=== PATIENT | male | born 1930 | race Caucasian/White ===

== ENCOUNTER 2016-08-16 09:50 | Inpatient (IN) | payer MEDICARE, OTHER ==
[~2016-08-16] VITALS: Ht 177.8 cm; Wt 80.2 kg
[~2016-08-16 09:50] MED LIST: FISH1CAP29 PO; LEVE500T18 PO; MULT1CAP47 PO
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
--- OUTSIDE RECORDS SUMMARY | 2016-08-16 09:55 | XMS REPORT | Referral Summary ---
Author Author [facility], Family Medicine Organization [facility] Address Unknown Phone Unavailable Care Team Providers Care Cardiac Specialist Name Role Phone Alfonso Deal Primary Care Physician [phone] Encounter VC Date(s): 06/17/15 - 06/17/15 [facility], [address] [place] [address] Discharge Diagnosis: Benign essential HTN Discharge Diagnosis: Hypertrophic cardiomyopathy Discharge Disposition: 01-Home or Self Care Attending Physician: Rohith Deal MD Admitting Physician: Rohith Deal MD Vital Signs Most recent to 1 oldest [Reference Range]: Peripheral Pulse 53 bpm Rate [60-100 bpm] *LOW* (06/17/15 9:39 AM) Blood Pressure 160/90 mmHg [90-140/60-90 mmHg] *HI* (06/17/15 9:39 AM) SpO2 97 % (06/17/15 9:39 AM) Problem List Condition Effective Dates Status [...] Ordered lisinopril-hydrochlorothiazide 10 mg-12.5 mg oral tablet See Instructions, 1 TABS ORAL DAILY, # 30 tabs, 1 Refill(s), eRx: [email or web address] [id number], 1 TABS ORAL DAILY Start Date: 06/17/15 Status: Ordered multivitamin 1 tablet, Oral, Daily, [...] Osteotomy, right knee8 1982 Appendectomy 193 Tonsillectomy 193 Vasectomy 1Hospitalization for cellulitis and lymphangitis of the right leg 2Hospitalization for intracerebral hemorrhage and amnesia 3Bilateral 4Tubular adenoma 5Right 6Hospitalization for cellulitis of the left leg 7Left 8Right knee Social History Social History Type Response Smoking Status Never smoker Assessment and Plan Extracted from: Title: Office Visit Note Author: Rohith Deal MD Date: 06/17/15 Assessment/Plan Benign essential HTN Ordered: Basic Metabolic Panel Hypertrophic cardiomyopathy Orders: lisinopril-hydrochlorothiazide, See Instructions, 1 TABS ORAL DAILY, # 30 tabs, 1 Refill(s), eRx: [email or web address] [id number], 1 TABS ORAL DAILY New diagnosis of hypertension. We discussed expectations and nonpharmacologic treatment. We discussed potential adverse effects of lisinopril and HCTZ and will use low-dose combination medicine. Check baseline BMP. Monitor blood pressures at home 2-3 times per week. Follow-up in one month to review blood pressures and anticipate repeat BMP at that time.
--- OUTSIDE RECORDS SUMMARY | 2016-08-16 09:55 | XMS REPORT | Referral Summary ---
Author Author [facility], Cardiology Organization [facility] Address Unknown Phone Unavailable Care Team Providers Care Train Control Technician Name Role Phone Alfonso Deal Primary Care Physician [phone] Encounter VC Date(s): 02/29/16 - 02/29/16 [facility], Cardiology [address] [place] [address] [place] [id number] Discharge Diagnosis: Hypertrophic cardiomyopathy Discharge Disposition: 01-Home or Self Care Attending Physician: Live Maldonado MD Admitting Physician: Live Maldonado MD Referring Physician: Rohith Deal MD Vital Signs Most recent to 1 oldest [Reference Range]: Peripheral Pulse 60 bpm Rate [60-100 bpm] (02/29/16 3:12 PM) Blood Pressure 120/64 mmHg [90-140/60-90 mmHg] (02/29/16 3:12 PM) Problem List Condition Effective Dates Status [...] BID, # 180 tabs, 4 Refill(s), Pharmacy: [facility], 1 tabs Oral BID [...] Colonoscopy4 2008 Knee replacement, right5 2006 Cellulitis6 2003 Knee replacement, left7 2000 Osteotomy, right knee8 1982 Appendectomy 1938 Tonsillectomy 193 Vasectomy 1Hospitalization for cellulitis and lymphangitis of the right leg 2Hospitalization for intracerebral hemorrhage and amnesia 3Bilateral 4Tubular adenoma 5Right 6Hospitalization for cellulitis of the left leg 7Left 8Right knee Social History Social History Type Response Smoking Status Never smoker Assessment and Plan Extracted from: Title: Office Visit Note Author: Live Maldonado MD Date: 02/29/16 Assessment/Plan 1.Hypertrophic cardiomyopathy Discussion: We elected not to make any changes in his medication program he is very comfortable with his current status. He is to see us in 6-12 months or any time as necessary.
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
--- OUTSIDE RECORDS SUMMARY | 2016-08-16 09:55 | XMS REPORT | Referral Summary ---
Author Author [facility] Family Medicine Organization [facility] Address Unknown Phone Unavailable Care Team Providers Care Cuffer Name Role Phone Alfonso Deal Primary Care Physician [phone] Encounter Date(s): 10/31/15 - 10/31/15 [facility] [address] [place] [address] Discharge Diagnosis: Hyperten heart dz w/o heart fail Discharge Diagnosis: Encounter for medication monitoring Discharge Diagnosis: Hypertrophic cardiomyopathy Discharge Diagnosis: Convulsions Discharge Diagnosis: Acute ill-defined cerebrovascular disease Discharge Disposition: 01-Home or Self Care Attending Physician: Rohith Deal MD Admitting Physician: Rohith Deal MD Vital Signs Most recent to 1 oldest [Reference Range]: Peripheral Pulse 81 bpm Rate [60-100 bpm] (10/31/15 10:08 AM) Blood Pressure 130/78 mmHg [90-140/60-90 mmHg] (10/31/15 10:08 AM) SpO2 97 % (10/31/15 10:08 AM) Problem List Condition Effective Dates Status [...] Daily, # 90 tabs, 3 Refill(s), Pharmacy: [facility] Start Date: 07/18/15 Status: Ordered multivitamin 1 tablet, Oral, Daily, 0 Refill(s) Start Date: 04/13/15 Status: Ordered Results Chemistry Most recent to 1 oldest [Reference Range]: Sodium Lvl [135-144 135 mEq/L mEq/L] (10/31/15 11:14 AM) Potassium Lvl 4.3 mEq/L [3.5-5.2 mEq/L] (10/31/15 11:14 AM) Chloride [99-111 100 mEq/L mEq/L] (10/31/15 11:14 AM) CO2 [23-31 mEq/L] 27 mEq/L (10/31/15 11:14 AM) AGAP [3-20] 8 (10/31/15 11:14 AM) BUN [8-26 mg/dL] 14 mg/dL (10/31/15 11:14 AM) Glucose Lvl [70-99 103 mg/dL mg/dL] *HI* (10/31/15 11:14 AM) Creatinine Lvl 0.89 mg/dL [0.72-1.25 mg/dL] (10/31/15 11:14 AM) eGFR [>60 mL/min] >60 mL/min 1 (10/31/15 11:14 AM) Calcium Lvl 9.7 mg/dL [8.9-10.5 mg/dL] (10/31/15 11:14 AM) 1Result Comment: Multiply eGFR results by 1.21 for race. Immunizations Vaccine Date Refusal Reason hepatitis A adult vaccine 03/26/95 influenza virus vaccine, live 01/25/05 influenza virus vaccine, live 01/22/94 pneumococcal 23-polyvalent vaccine 08/11/98 poliovirus vaccine, inactivated 02/19/95 tetanus-diphth toxoids (Td) adult/adol 01/07/06 tetanus-diphth toxoids (Td) adult/adol 03/26/95 zoster vaccine live 03/12/07 Procedures Procedure Date Related Diagnosis Body Site Cellulitis1 2011 Intracerebral hemorrhage2 2010 Cataract extraction, bilateral3 2008 Colonoscopy4 2008 Knee replacement, right5 2006 Cellulitis6 [...] smoker Assessment and Plan Extracted from: Title: CDM-OV * Author: Rohith Deal MD Date: 10/31/15 Impression and Plan Diagnosis Hypertrophic cardiomyopathy (IQZ96-FT I42.2, Discharge, Medical). Hyperten heart dz w/o heart fail (GMO86-BV I51.9, Discharge, Medical). Acute ill-defined cerebrovascular disease (PQH27-YT I67.89, Discharge, Medical). Convulsions (PXC70-CC R56.9, Discharge, Medical). Encounter for medication monitoring (HKN62-EC Z51.81, Discharge, Medical). Orders Orders (Selected) Outpatient Orders Future (On Hold) BMP: .
--- OUTSIDE RECORDS SUMMARY | 2016-08-16 09:55 | XMS REPORT | Referral Summary ---
Author Author [facility] Family Medicine Organization [facility] Address Unknown Phone Unavailable Care Team Providers Care Human Resource Intern Name Role Phone Alfonso Deal Primary Care Physician [phone] Encounter VC Date(s): 05/09/15 - 05/09/15 [facility] [address] [place] [id number] Discharge Diagnosis: Hypertrophic cardiomyopathy Discharge Diagnosis: Hypertrophy (benign) of prostate Discharge Diagnosis: Hyperlipidemia Discharge Diagnosis: OA (osteoarthritis) Discharge Diagnosis: Elevated BP Discharge Diagnosis: Acute ill-defined cerebrovascular disease Discharge Disposition: 01-Home or Self Care Attending Physician: Rohith Deal MD Admitting Physician: Rohith Deal MD Vital Signs Most recent to 1 oldest [Reference Range]: Temperature Tympanic 35.6 degC [36.6-38.1 degC] *LOW* (05/09/15 10:10 AM) Peripheral Pulse 68 bpm Rate [60-100 bpm] (05/09/15 10:10 AM) Blood Pressure 161/99 mmHg [90-140/60-90 mmHg] *HI* (05/09/15 10:10 AM) Problem List Condition Effective Dates Status [...] smoker Assessment and Plan Extracted from: Title: Get acquainted Author: Rohith Deal MD Date: 05/09/15 Assessment/Plan Acute ill-defined cerebrovascular disease Hyperlipidemia Hypertrophic cardiomyopathy Hypertrophy (benign) of prostate OA (osteoarthritis) Overall he seems to be stable and we will continue present care. Today's blood pressure was elevated. I asked him to monitor blood pressures 2 -3 times per week and give me an update after one month. Goal is less than 140 /90. He has neurology follow-up tomorrow with Dr. Nj and I listed that he have Dr. Nj send me a copy of that visit note. He also continues to follow with Dr. Maldonado regarding cardiac issues. If all goes well, follow-up with me in 6 months or sooner if needed. We will send a copy of this visit note to Dr. Nj.
--- OUTSIDE RECORDS SUMMARY | 2016-08-16 09:55 | XMS REPORT | Referral Summary ---
Author Author [facility] Cardiology Organization [facility] Address Unknown Phone Unavailable Care Team Providers Care Cap Lining Machine Operator Name Role Phone Alfonso Deal Primary Care Physician [phone] Encounter VC Date(s): 01/18/16 - 01/18/16 [facility], Cardiology [address] [place] [address] [place] [id number] Discharge Diagnosis: Essential hypertension Discharge Diagnosis: Stable angina Discharge Diagnosis: Hypertrophic cardiomyopathy Discharge Disposition: 01-Home or Self Care Attending Physician: Live Maldonado MD Admitting Physician: Live Maldonado MD Referring Physician: Rohith Deal MD Vital Signs Most recent to 1 oldest [Reference Range]: Peripheral Pulse 60 bpm Rate [60-100 bpm] (01/18/16 11:14 AM) Blood Pressure 106/60 mmHg [90-140/60-90 mmHg] (01/18/16 11:14 AM) Problem List Condition Effective Dates Status [...] BID, # 180 tabs, 4 Refill(s), Pharmacy: [facility], 1 tabs Oral BID [...] Visit Note Author: Live Maldonado MD Date: 01/18/16 Assessment/Plan 1.Hypertrophic cardiomyopathy 2.Essential hypertension 3.Stable angina It's possible that he has a component of hypotensionperhaps related to abruptly standing that might be aggravating his hypertrophic cardiomyopathy. After a lot of discussion, we stopped his lisinopril hydrochlorothiazide and started him instead on carvedilol, 3.15 mg twice daily. He has had a relatively slow heart rate in the past so we will need to be cautious. We suggested a follow-up visit in order to ascertain his stability.
--- OUTSIDE RECORDS SUMMARY | 2016-08-16 09:55 | XMS REPORT | Referral Summary ---
Author Author [facility] Medicine Organization [facility] Address Unknown Phone Unavailable Care Team Providers Care Power Grader Operator Name Role Phone Alfonso Deal Primary Care Physician [phone] Encounter VC Date(s): 07/18/15 - 07/18/15 [facility], Family [address] [place] [address] Discharge Disposition: 01-Home or Self Care Attending Physician: Rohith Deal MD Admitting Physician: Rohith Deal MD Vital Signs Most recent to 1 oldest [Reference Range]: Peripheral Pulse 83 bpm Rate [60-100 bpm] (07/18/15 8:40 AM) Blood Pressure 130/80 mmHg [90-140/60-90 mmHg] (07/18/15 8:40 AM) SpO2 96 % (07/18/15 8:40 AM) Problem List Condition Effective Dates Status [...] Daily, # 90 tabs, 3 Refill(s), Pharmacy: [facility] Start Date: 07/18/15 Status: Ordered multivitamin 1 tablet, Oral, Daily, 0 Refill(s) Start Date: 04/13/15 Status: Ordered Results Chemistry Most recent to 1 oldest [Reference Range]: Sodium Lvl [135-144 138 mEq/L mEq/L] (07/18/15 9:42 AM) Potassium Lvl 4.2 mEq/L [3.5-5.2 mEq/L] (07/18/15 9:42 AM) Chloride [99-111 103 mEq/L mEq/L] (07/18/15 9:42 AM) CO2 [23-31 mEq/L] 29 mEq/L (07/18/15 9:42 AM) AGAP [3-20] 6 (07/18/15 9:42 AM) BUN [8-26 mg/dL] 19 mg/dL (07/18/15 9:42 AM) Glucose Lvl [70-99 96 mg/dL mg/dL] (07/18/15 9:42 AM) Creatinine Lvl 0.97 mg/dL [0.72-1.25 mg/dL] (07/18/15 9:42 AM) eGFR [>60 mL/min] >60 mL/min 1 (07/18/15 9:42 AM) Calcium Lvl 9.7 mg/dL [8.9-10.5 mg/dL] (07/18/15 9:42 AM) 1Result Comment: Multiply eGFR results by 1.21 for race. Immunizations Vaccine Date Refusal Reason hepatitis A adult vaccine 03/26/95 influenza virus vaccine, live 01/25/05 influenza virus vaccine, live 01/22/94 pneumococcal 23-polyvalent vaccine 08/11/98 poliovirus vaccine, inactivated 02/19/95 tetanus-diphth toxoids (Td) adult/adol 01/07/06 tetanus-diphth toxoids (Td) adult/adol 03/26/95 zoster vaccine live 03/12/07 Procedures Procedure Date Related Diagnosis Body Site Cellulitis1 2012 Intracerebral hemorrhage2 2010 Cataract extraction, bilateral3 2007 Colonoscopy4 2007 Knee [...] Visit Note Author: Rohith Deal MD Date: 07/18/15 Assessment/Plan Benign essential HTN Orders: lisinopril-hydrochlorothiazide, 1 tabs, Oral, Daily, # 90 tabs, 3 Refill(s), Pharmacy: [facility] We will check BMP as med monitoring. Otherwise continue current medications and follow-up in 6 months or sooner if needed.
--- OUTSIDE RECORDS SUMMARY | 2016-08-16 09:55 | XMS REPORT | Referral Summary ---
Author Organization Unknown Address Unknown Phone Unavailable Care Team Providers Care Records Section Supervisor Name Role Phone BellFer Primary Care Physician [phone] Encounter [facility] [id number] Date(s): 05/28/14 - 05/28/14 [facility], [place], Cardiology [address] [place], [place] [address] Discharge Disposition: Home or Self Care Attending Physician: Tadeo Narayan MD Admitting Physician: Tadeo Narayan MD Vital Signs No data available for this section Problem List Condition Effective Dates Status Health [...]
--- OUTSIDE RECORDS SUMMARY | 2016-08-16 09:56 | XMS REPORT | Referral Summary ---
Author Author [facility] Organization [facility] Address Unknown Phone Unavailable Care Team Providers Care Monitoring Analyst Name Role Phone Fer Bell Primary Care Physician [phone] Encounter VC Date(s): 04/13/15 - 04/13/15 [facility] [address] [place] [address] ROMEL Bustos [id number] Discharge Diagnosis: Abnormal EKG Discharge Diagnosis: Hypertrophic cardiomyopathy Discharge Disposition: 01-Home or Self Care Attending Physician: Live Maldonado MD Admitting Physician: Live Maldonado MD Referring Physician: Cheko Bell MD Vital Signs Most recent to 1 oldest [Reference Range]: Peripheral Pulse 64 bpm Rate [60-100 bpm] (04/13/15 2:32 PM) Blood Pressure 154/88 mmHg [90-140/60-90 mmHg] *HI* (04/13/15 2:32 PM) Problem List Condition Effective Dates Status [...] left7 2000 Osteotomy, right knee8 1982 Appendectomy 1937 Tonsillectomy 1935 Vasectomy 1Hospitalization for cellulitis and lymphangitis of the right leg 2Hospitalization for intracerebral hemorrhage and amnesia 3Bilateral 4Tubular adenoma 5Right 6Hospitalization for cellulitis of the left leg 7Left 8Right knee Social History Social History Type Response Smoking Status Never smoker Assessment and Plan Extracted from: Title: Office Visit Note Author: Live Maldonado MD Date: 04/13/15 Assessment/Plan 1.Hypertrophic cardiomyopathy Ordered: Office Visit Level 4 Est 57151 2.Abnormal EKG Discussion:Clearly he seems to be relatively free of symptomsand he clearly does have hypertrophic cardiomyopathy with mild obstruction. We had a long discussion regarding the abnormality. We advised him to avoid extremes of activity and to avoidcompetitive sports etc. We advised him of cardinal symptoms. We advised him to contact us if he has any difficulty. I advised him that it will be important for his children and probably his grandchildren to have an echocardiogram to be sure thatthey do not have the pathology. I advised a follow-up visit in 4-6 months but we can see him any time if he has difficulty. He Time of visit today about 25 minutes. Ordered: Office Visit Level 4 Est 25719
--- OUTSIDE RECORDS SUMMARY | 2016-08-16 09:56 | XMS REPORT | Continuity of Care Document ---
Author Author [facility] Organization [facility] Address Unknown Phone Unavailable Allergies Active Description Code Type Severity Reaction Onset Reported/Identified Relationship to Patient Clinical Status Yes fentaNYL NKMA N/A N/A 08/12/2013 Yes penicillin NKMA N/A N/A 08/12/2013 Yes Versed NKMA N/A N/A 03/03/2014 Medications Problems Procedures Results Encounters ACCT No. Visit Date/Time Discharge Status Pt. Type Provider Facility Loc./Unit Complaint [id number] 05/07/2016 10:26:00 2016 23:59:00 DIS Outpatient Rohith Deal V [facility] 6 month CRMMP [id number] 02/29/2016 15:04:00 2015 23:59:00 DIS Outpatient Live Maldonado [facility] Card TCPA 1 mos gail [id number] 01/18/2016 10:46:00 2015 23:59:00 DIS Outpatient Live Maldonado [facility] Card 6 MO RCK [id number] 10/31/2015 10:04:00 2015 23:59:00 DIS Outpatient Rohith Deal V [facility] New FM 6MTH FU FROM 1.25.16 [id number] 08/23/2015 15:04:00 2015 23:59:00 DIS Outpatient Rohith Deal V [facility] FM right ear plugged [id number] 07/18/2015 08:37:00 2015 23:59:00 DIS Outpatient Rohith Deal V [facility] FM 1 month HTN [id number] 06/17/2015 09:31:00 2015 23:59:00 DIS Outpatient Rohith Deal V [facility] FM blood pressure [id number] 04/13/2015 16:26:00 2014 23:59:00 DIS Outpatient Live Maldonado [facility] Mur Card EKG I42.2 PATITO [id number] 04/13/2015 14:05:00 2014 23:59:00 DIS Outpatient Live Maldonado [facility] New Card 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 [id number] 05/09/2015 10:04:00 ACT Outpatient Rohith Deal V [facility] New FM NPT EST CHRIS
--- OUTSIDE RECORDS SUMMARY | 2016-08-16 09:56 | XMS REPORT | Referral Summary ---
Author Organization Unknown Address Unknown Phone Unavailable Care Team Providers Care Cnc Lathe Machinist Name Role Phone Fer Bell Primary Care Physician [phone] Encounter VC Date(s): 06/23/14 - 06/23/14 [facility] [address] [place] [address] Rosas ROMEL [id number] Discharge Diagnosis: Dyslipidemia Discharge Diagnosis: OTHER AND UNSPECIFIED HYPERLIPIDEMIA Discharge Diagnosis: Shortness of breath Discharge Diagnosis: Hypertrophic cardiomyopathy Discharge Diagnosis: Chest pain Discharge Diagnosis: History of seizure Discharge Diagnosis: History of syncope Discharge Diagnosis: Abnormal EKG Discharge Disposition: Home or Self Care Attending Physician: Tadeo Narayan MD Admitting Physician: Tadeo Narayan MD Referring Physician: Cheko Bell MD Vital Signs Most recent to 1 oldest [Reference Range]: Peripheral Pulse 56 bpm Rate [60-100 bpm] *LOW* (06/23/14 10:41 AM) Blood Pressure 126/88 mmHg [90-140/60-90 mmHg] (06/23/14 10:41 AM) Problem List Condition Effective Dates Status [...] 2011 Intracerebral hemorrhage2 2010 Cataract extraction, bilateral3 2007 Colonoscopy4 2008 Knee [...] smoker Assessment and Plan Extracted from: Title: Ambulatory Patient Education Author: Tram Witt NP Date: Family Medicine Cardiac Arrhythmia Your heart is a muscle that works to pump blood through your body by regular contractions. The beating of your heart is controlled by a system of special pacemaker cells. These cells control the electrical activity of the heart. When the system controlling this regular beating is disturbed, a heart rhythm abnormality (arrhythmia ) results. WHEN YOUR HEART SKIPS A BEAT One of the most common and least serious heart arrhythmias is called an ectopic or premature atrial heartbeat (PAC ). This may be noticed as a small change in your regular pulse. A PAC originates from the top part (atrium ) of the heart. Within the right atrium, the SA node is the area that normally controls the regularity of the heart. PACs occur in heart tissue outside of the SA node region. You may feel this as a skipped beat or heart flutter, especially if several occur in succession or occur frequently. Another arrhythmia is ventricular premature complex (VCP or PVC ). These extra beats start out in the bottom, more muscular chambers of the heart. In most cases a PVC is harmless. If there are underlying causes that are making the heart irritable such as an overactive thyroid or a prior heart attack PVCs may be of more concern. In a few cases, medications to control the heart rhythm may be prescribed. Things to try at home: Cut down or avoid alcohol, tobacco and caffeine. Get enough sleep. Reduce stress. Exercise more. WHEN THE HEART BEATS TOO FAST Atrial tachycardia is a fast heart rate, which starts out in the atrium. It may last from minutes to much longer. Your heart may beat 140 to 240 times per minute instead of the normal 60 to 100. Symptoms include a worried feeling (anxiety ) and a sense that your heart is beating fast and hard. You may be able to stop the fast rate by holding your breath or bearing down as if you were going to have a bowel movement. This type of fast rate is usually not dangerous. Atrial fibrillation and atrial flutter are other fast rhythms that start in the atria. Both conditions keep the atria from filling with enough blood so the heart does not work well. Symptoms include feeling light-headed or faint. These fast rates may be the result of heart damage or disease. Too much thyroid hormone may play a role. There may be no clear cause or it may be from heart disease or damage. Medication or a special electrical treatment (cardioversion ) may be needed to get the heart beating normally. Ventricular tachycardia is a fast heart rate that starts in the lower muscular chambers (ventricles ) This is a serious disorder that requires treatment as soon as possible. You need someone else to get and use a small defibrillator. Symptoms include collapse, chest pain, or being short of breath. Treatment may include medication, procedures to improve blood flow to the heart, or an implantable cardiac defibrillator (ICD ). DIAGNOSIS A cardiogram (EKG or ECG ) will be done to see the arrhythmia, as well as lab tests to check the underlying cause. If the extra beats or fast rate come and go, you may wear a Holter monitor that records your heart rate for a longer period of time. SEEK MEDICAL CARE IF: You have irregular or fast heartbeats (palpitations ). You experience skipped beats. You develop lightheadedness. You have chest discomfort. You have shortness of breath. You have more frequent episodes, if you are already being treated. SEEK IMMEDIATE MEDICAL CARE IF: You have severe chest pain, especially if the pain is crushing or pressure- like and spreads to the arms, back, neck, or jaw, or if you have sweating, feeling sick to your stomach (nausea ), or shortness of breath. THIS IS AN EMERGENCY. Do not wait to see if the pain will go away. Get medical help at once. Call 911 or 0 (light oil operator). DO NOT drive yourself to the hospital. You feel dizzy or faint. You have episodes of previously documented atrial tachycardia that do not resolve with the techniques your caregiver has taught you. Irregular or rapid heartbeats begin to occur more often than in the past, especially if they are associated with more pronounced symptoms or of longer duration. Document Released: 04/01/2006 Document Revised: 06/23/2012 Document Reviewed: [facility] Patient Information 2014 [employer] [facility]. No follow up information was provided. Referrals to Other Providers Referred by: rTam Witt NP
--- OUTSIDE RECORDS SUMMARY | 2016-08-16 09:56 | XMS REPORT | Referral Summary ---
Author Organization Unknown Address Unknown Phone Unavailable Care Team Providers Care Toy Electric Train Repairer Name Role Phone Fer Bell Primary Care Physician [phone] Encounter VC Date(s): 05/12/14 - 05/12/14 [facility] [address] [place] [address] Dr Rosas ROMEL [id number] Discharge Diagnosis: Chest pain Discharge Diagnosis: Shortness of breath Discharge Diagnosis: Hypertrophic cardiomyopathy Discharge Disposition: Home or Self Care Attending Physician: Tadeo Narayan MD Admitting Physician: Tadeo Narayan MD Referring Physician: Cheko Bell MD Vital Signs Most recent to 1 oldest [Reference Range]: Peripheral Pulse 51 bpm Rate [60-100 bpm] *LOW* (05/12/14 9:56 AM) Blood Pressure 192/90 mmHg [90-140/60-90 mmHg] *HI* (05/12/14 9:56 AM) Problem List Condition Effective Dates Status [...] Extracted from: Title: Ambulatory Patient Education Author: Tadeo Narayan MD Date: 05/12/14 Family Medicine Hypertrophic Cardiomyopathy The heart has four chambers to pump blood throughout the body. In hypertrophic cardiomyopathy (HC ), the heart muscle becomes enlarged and thickened. The septum is the muscular part of the heart which separates the chambers. When the septum enlarges it takes up part of the heart chamber. This causes a decrease in blood flow. A bigger septum affects the large left muscular chamber of the heart (left ventricle ) and obstructs the blood flow. This may be called obstructive cardiomyopathy (HOCM ). The degree of obstruction may vary and increase during exercise. Young athletes with a family history of heart problems should be screened for this problem. This disease will get worse without treatment. As the heart work increases, so do the size of the muscles. Get medical treatment as soon as possible. This disease can result in sudden , especially after exercise. Diagnosing the problem and treating it is important. SYMPTOMS Shortness of breath. Chest pain. Irregular or fast heart beats. Fainting (especially after exertion). DIAGNOSIS Your caregiver will be able to determine what is wrong by taking a history to see what is bothering you and by doing a physical exam. Other tests may include : An EKG which is a recording of the electrical activity of the heart. With HOCM this may show an enlargement of the left ventricle (left ventricular hypertrophy). An echocardiogram may be done and is the test of choice for screening young athletes. It will usually show the enlargement of the left ventricle and slow filling of the chamber. A doppler test shows irregular flow and a pressure gradient change of both sides of the aortic valve. It also typically shows mitral regurgitation. This means that blood leaks backward through the mitral valve. This makes the heart work harder. TREATMENT Your caregiver may prescribe medications to help this. Sometimes part of the heart septum may be removed with surgery or an alcohol ablation. In severe cases , pacemakers in both sides of the heart may be helpful in reducing the workload on the heart. PROGNOSIS Atrial fibrillation may occur. This is a condition where the top chambers of the heart have stopped beating in a normal regular fashion. Sudden is another complication of untreated HC. SEEK IMMEDIATE MEDICAL CARE IF: You develop chest pain, sweating, or shortness of breath, especially during or after sports. You feel faint or pass out. You have trouble breathing even at rest. Your feet or ankles get swollen. You feel palpitations or abnormal heartbeats. Document Released: 03/07/2005 Document Revised: 06/23/2012 Document Reviewed: [facility] Patient Information 2014 [place]. No follow up information was provided. Referrals to Other Providers Referred by: Tadeo Narayan MD
[2016-08-16 10:00] VITALS: BP 141/76; PULSE 72; PULSE 78; RESP 16; TEMP 98.4; O2SAT 98
[2016-08-16 10:18] VITALS: Ht 177.8 cm; Wt 80.2 kg
[2016-08-16] MEDS ORDERED: ACETAMINOPHEN 325 MG TABLET PO PRN (10:30)
[2016-08-16] MEDS ORDERED: KETOROLAC 15mg/ml INJECTION IV PRN (10:30)
[2016-08-16] MEDS ORDERED: CARV3.123 PO (10:41)
--- NOTE | 2016-08-16 10:42 | NUR ---
Admit Patient arrived at 10:15 as a direct admit. Admit process completed by Cherelle YANEZ, Steve YANEZ assumed care of patient.
[2016-08-16 11:41] LABS: HCT - HEMATOCRIT 42.2 % (41-53); HGB - HEMOGLOBIN 14.4 GM/DL (13.5-17.5); MEAN CORPUSCULAR HGB 32.3 UUG (26-34); MEAN CORPUSCULAR HGB CONC(MCHC 34.1 GM/DL (31-37); MEAN CORPUSCULAR VOLUME 94.6 UM3 (80-100); MEAN PLATELET VOLUME 9.9 UM3 (9.4-12.4); RED BLOOD COUNT 4.46 M/MM3 (4.50-5.90); WBC - WHITE BLOOD COUNT 12.2 T/MM3 (4.5-11.0)
[2016-08-16] MEDS: ERTAPENEM 1 G in NORMAL SALINE 100 ML IV SCH (11:41)
[2016-08-16 11:53] LABS: ANION GAP 9 MEQ/L (5-15); BUN/CREATININE RATIO 24 RATIO (6-26); CHLORIDE 98 MEQ/L (98-107); CO2 - CARBON DIOXIDE 29 MEQ/L (22-30); CREATININE 1.2 MG/DL (0.8-1.5); GLOMERULAR FILTRATION RATE 57; GLUCOSE 97 MG/DL (75-110); POTASSIUM 3.9 MEQ/L (3.6-5); SODIUM 136 MEQ/L (134-144)
[2016-08-16 12:02] LABS: BAND NEUTROPHILS # 0.9 T/MM3; MONOCYTES # (MANUAL) 0.6 T/MM3 (0-0.8); NEUTROPHILS #(MANUAL)-ABSOLUTE 9.6 T/MM3 (1.8-7.7); REACTIVE LYMPHOCYTES # 0.1 T/MM3 (0-0); TOTAL CELLS COUNTED 100 %
--- NOTE | 2016-08-16 13:06 | HPPDOC ---
HPI - Adult Date DATE: 08/16/16 TIME: 12:58 General History of Present Illness This is a 85-year-old male who presents with worsening right leg redness and pain for the past 2 days. Patient denies any trauma to the area. Patient states he had a fever of 101 last night. Patient states this is similar to 5 years ago when he had a cellulitis on his leg. Patient states he takes his medications as prescribed. He states he has not taken any outpatient antibiotics. She was sent in from his primary care physician for evaluation and treatment of the cellulitis. He denies any sick procedures visual irritation is. He denies any chest pain shortness of breath nausea vomiting or diaphoresis. He denies any abdominal pain diarrhea constipation melena stools or dark, tarry stools. He denies any dysuria or hematuria. Past Medical History Past Medical History Hypertension Seizure disorder Dyslipidemia Current Medications Home Meds Reported Medications Carvedilol (Carvedilol) 3.125 Mg Tablet, 1 TAB PO BIDWM, TAB BEST WITH FOOD. 08/16/16 Levetiracetam (Keppra) 500 Mg Tablet, 500 MG PO BID 09/10/11 Multivitamins W-Minerals (Multivitamin) 1 Cap Capsule, 1 CAP PO DAILY 08/23/09 Fish Oil/[place]-3 Fatty Acids (Fish Oil 1,000 Mg Capsule) 1 Cap Capsule, 1 CAP PO DAILY 08/23/09 Allergies: Coded Allergies: Penicillins (Verified Allergy, Mild, RASH, 07/06/12) fentanyl (Verified Allergy, Mild, RASH, 07/06/12) WAS GIVEN VERSED AND FENTANYL WITH KNEE SURGERY AT [facility], DR. CHEATHAM. HAD RASH AFTER IT WAS GIVEN, WAS SENT HOME AND THEN CAME BACK FOR SURGERY ANOTHER TIME WITH DIFFERENT ANESTHESIA midazolam (Verified Allergy, Mild, RASH, 07/06/12) WAS GIVEN VERSED AND FENTANYL WITH KNEE SURGERY AT [facility], DR. CHEATHAM. HAD RASH AFTER IT WAS GIVEN, WAS SENT HOME AND THEN CAME BACK FOR SURGERY ANOTHER TIME WITH DIFFERENT ANESTHESIA Family History Family History: Hypertension Social History Smoking Status: Never smoker Does patient use chewing tobac: No Alcohol Intake: none Advance Directives: Yes DPOA for Healthcare Only Review of Systems All Other Systems Comments As per history of present illness. All systems were reviewed and otherwise negative. Physical Exam General Vital Signs Vital Signs Date Time Temp Pulse Resp B/P Pulse Ox O2 Delivery O2 Flow Rate FiO2 08/16/16 10:00 98.4 78 16 141/76 98 Room Air Height (Feet): 5 Height (Inches): 10.00 Comments General - AAO 3; NAD CV - RRR Lungs - CTAB Abdomen - benign Extremities - no e/c/c Neuro--nonfocal Rectal--deferred Genitourinary--deferred Skin--RLE with cellulitis extending from his knee to his ankle Neurologic RN Documented GCS Eye Opening: Verbal: Motor: Total: Laboratory Laboratory Tests Test 08/16/16 11:28 White Blood Count 12.2T/MM3 Red Blood Count 4.46M/MM3 Hemoglobin 14.4GM/DL Hematocrit 42.2% Mean Corpuscular Volume 94.6UM3 Mean Corpuscular Hemoglobin 32.3UUG Mean Corpuscular Hemoglobin Concent 34.1GM/DL RDW Standard Deviation 44.3FL Platelet Count 147T/MM3 Mean Platelet Volume 9.9UM3 Immature Granulocyte % (Auto) % Neutrophils (%) (Auto) % Lymphocytes (%) (Auto) % Monocytes (%) (Auto) % Eosinophils (%) (Auto) % Basophils (%) (Auto) % Absolute Immature Granulocyte (auto T/MM3 Absolute Neutrophils (auto) T/MM3 Absolute Lymphocytes (auto) T/MM3 Absolute Monocytes (auto) T/MM3 Absolute Eosinophils (auto) T/MM3 Absolute Basophils (auto) T/MM3 Neutrophils % (Manual) 79.0% Band Neutrophils % 7.0% Lymphocytes % (Manual) 8.0% Reactive Lymphocytes % 1.0% Monocytes % (Manual) 5.0% Absolute Neutrophils (Manual) 9.6T/MM3 Band Neutrophils # 0.9T/MM3 Lymphocytes # (Manual) 1.0T/MM3 Reactive Lymphocytes # 0.1T/MM3 Monocytes # (Manual) 0.6T/MM3 Red Cell Morphology Comment Normal Turbidity < 20 Sodium Level 136MEQ/L Potassium Level 3.9MEQ/L Chloride Level 98MEQ/L Carbon Dioxide Level 29MEQ/L Anion Gap 9MEQ/L Blood Urea Nitrogen 29.0MG/DL Creatinine 1.2MG/DL Glomerular Filtration Rate Calc 57 BUN/Creatinine Ratio 24RATIO Glucose Level 97MG/DL Calculated Osmolality 268MOSM/KG Calcium Level 9.0MG/DL Icterus Index < 2 Chemistry Specimen Hemolysis < 15 Assessment & Plan Assessment #1 right lower extremity cellulitis--blood cultures have been sent. We will treat the patient with Invanz during his hospital physician. 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 If there is no improvement we'll add vancomycin. #2 hypertension--continue beta martina. #3 seizure disorder--continue Keppra. #4 dyslipidemia--we will hold his fish oil during his hospitalization. Code Status Full Code Hospital Course Summary Disclaimer The hospital course summary below is not to be considered part of the above Progress Note. CÉSAR HERNANDEZ MD August 16, 2016 13:02
[2016-08-16 16:00] VITALS: BP 121/73; PULSE 71; RESP 16; TEMP 98.8; O2SAT 94
[2016-08-16 16:42] VITALS: PULSE 71; RESP 16; O2SAT 94
[2016-08-16] MEDS: CARVEDILOL 3.125 MG TABLET PO SCH (17:46)
--- NOTE | 2016-08-16 18:27 | NUR ---
STATUS PATIENT IS RESTING IN NO APPARENT DISTRESS AT THIS TIME. PATIENT HAS RECEIVED 1ST DOSE OF ANTIBIOTICS. PATIENT TOLERATED WELL. REMAINS ON RA. VSS. PATIENT IS UP AD MARTHA IN ROOM. NOTED STEADY GAIT IN ROOM. PATIENT WEARS HEARING AIDES BUT DOESN'T HAVE THEM HERE. HE IS [place].
[2016-08-16] MEDS: LEVETIRACETAM 500 MG TABLET PO SCH ×2 (20:39→20:41)
--- NOTE | 2016-08-16 20:41 | NUR ---
CESARIO MEDICATION PT TOOK OWN KEPPRA 500MG BEFORE NURSE ATTEMPTED TO ADMINISTER. PTS HOME MEDICATIONS REMOVED FROM ROOM AND LOCKED IN CABINET.
[2016-08-16 23:04] VITALS: BP 122/67; PULSE 66; RESP 20; TEMP 99.1; O2SAT 95
[2016-08-17 05:33] LABS: HCT - HEMATOCRIT 41.6 % (41-53); HGB - HEMOGLOBIN 14.4 GM/DL (13.5-17.5); MEAN CORPUSCULAR HGB 32.9 UUG (26-34); MEAN CORPUSCULAR HGB CONC(MCHC 34.6 GM/DL (31-37); MEAN PLATELET VOLUME 10.4 UM3 (9.4-12.4); RED BLOOD COUNT 4.38 M/MM3 (4.50-5.90); WBC - WHITE BLOOD COUNT 7.7 T/MM3 (4.5-11.0)
--- NOTE | 2016-08-17 05:36 | NUR ---
SUMMARY A&OX3, DENIES PAIN, NAUSEA, SOA. UP AD MARTHA IN ROOM. REDNESS ON LEFT LEG PREVIOUSLY OUTLINED BY A PHYSICIAN. IVL IN LT FOREARM. PT SLEPT WELL MOST OF SHIFT.
[2016-08-17 05:42] LABS: ANION GAP 9 MEQ/L (5-15); BUN/CREATININE RATIO 23 RATIO (6-26); CALCIUM 8.9 MG/DL (8.4-10.2); CHLORIDE 101 MEQ/L (98-107); CO2 - CARBON DIOXIDE 29 MEQ/L (22-30); GLOMERULAR FILTRATION RATE 71; GLUCOSE 103 MG/DL (75-110); MAGNESIUM 2.2 MG/DL (1.6-2.3); SODIUM 139 MEQ/L (134-144)
[2016-08-17 06:29] LABS: BAND NEUTROPHILS # 1.2 T/MM3; EOSINOPHILS # (MANUAL) 0.2 T/MM3 (0-0.5); LYMPHOCYTES # (MANUAL) 0.6 T/MM3 (1-4.8); MONOCYTES # (MANUAL) 0.4 T/MM3 (0-0.8); NEUTROPHILS #(MANUAL)-ABSOLUTE 5.4 T/MM3 (1.8-7.7); TOTAL CELLS COUNTED 100 %
[2016-08-17 08:00] VITALS: BP 122/74; PULSE 65; RESP 16; TEMP 97.5; O2SAT 95
--- NOTE | 2016-08-17 08:00 | NUR ---
REPORT RECEIVED PATIENT IS ALERT AND ORIENTED. HEARD OR HEARING . DENIES PAIN THIS MORNING. PATIENT IS UP AD MARTHA IN ROOM. TAKES SHOWER THIS MORNING. NOTED STEADY GAIT. RLE STILL APPEARS THE SAME. NO SIGN OF WORSENING.
[2016-08-17] MEDS: CARVEDILOL 3.125 MG TABLET PO SCH ×2 (08:55→17:46)
[2016-08-17] MEDS: LEVETIRACETAM 500 MG TABLET PO SCH ×2 (08:55→20:09)
[2016-08-17] MEDS: ERTAPENEM 1 G in NORMAL SALINE 100 ML IV SCH (11:13)
--- NOTE | 2016-08-17 12:25 | PNPDOC ---
Subjective Date DATE: 08/17/16 TIME: 12:05 Subjective States that he doesn't notice a change in his leg. No events overnight. No fevers. Objective Vital Signs Vital signs Vital Signs Date Time Temp Pulse Resp B/P Pulse Ox O2 Delivery O2 Flow Rate FiO2 08/17/16 08:00 97.5 65 16 122/74 95 Room Air Height (Feet): 5 Height (Inches): 10.00 Weight (Kilograms): 80.100 General Comments General - AAO 3; NAD CV - RRR Lungs - CTAB Abdomen - benign Extremities - no e/c/c Neuro--nonfocal Rectal--deferred Genitourinary--deferred Skin--RLE with cellulitis extending from his knee to his ankle with some improvement in the erythema; nontender Laboratory Laboratory Laboratory Tests 08/16/16 11:28 08/17/16 04:13 Laboratory Tests 08/16/16 11:28 08/17/16 04:13 Microbiology Microbiology Microbiology Date/Time Source Procedure Growth Status 08/16/16 11:31 Peripheral/Iv Start Blood Culture - Preliminary NO GROWTH AFTER 24 HOURS Resulted 08/16/16 11:28 Peripheral/Iv Start Blood Culture - Preliminary NO GROWTH AFTER 24 HOURS Resulted Assessment & Plan Assessment #1 right lower extremity cellulitis--blood cultures have been sent. We will treat the patient with Invanz during his hospital physician. 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 Appears to have slight improvement compared to yesterday. Continue current therapy. #2 hypertension--continue beta martina. #3 seizure disorder--continue Keppra. #4 dyslipidemia--we will hold his fish oil during his hospitalization. Code Status Full Code Hospital Course Summary Disclaimer The hospital course summary below is not to be considered part of the above Progress Note. CÉSAR HERNANDEZ MD August 17, 2016 12:25
--- NOTE | 2016-08-17 14:20 | NUR ---
SKYLER CM IN TO VISIT PT. CM EXPLAINED ROLE AND PROVIDED CONTACT INFORMATION. PT DENIES NEED FOR HELP AT HOME REPORTS HIS DAUGHTER IS A NURSE PRACTITIONER AND WILL BE STAYING WITH HIM AND HIS AFTER DISCHARGE.
[2016-08-17 14:21] VITALS: BP 132/80; PULSE 65; RESP 16; TEMP 97.8; O2SAT 95
--- NOTE | 2016-08-17 19:25 | NUR ---
STATUS PATIENT HAS HAD NO CONCERNS TODAY.
[2016-08-17 20:05] VITALS: BP 131/73; PULSE 65; RESP 18; TEMP 98.1; O2SAT 94
[2016-08-17 23:43] VITALS: BP 106/64; PULSE 58; RESP 20; TEMP 98.1; O2SAT 98
--- NOTE | 2016-08-18 05:49 | NUR ---
SUMMARY PT SLEEPING AT THE MOMENT. PT IS ALERT AND ORIENTED. [employer] [place]. DENIED ANY PAIN THIS SHIFT. NO PRN MEDICATION WAS GIVEN THIS SHIFT. PT IS UP AD MARTHA. EDUCATED ABOUT CALL LIGHT USE AND PT SAFETY. PT IS ON ROOM AIR ALL NIGHT.
[2016-08-18 07:32] VITALS: BP 146/91; PULSE 58; RESP 20; TEMP 97.5; O2SAT 96
[2016-08-18] MEDS: CARVEDILOL 3.125 MG TABLET PO SCH ×2 (07:59→16:47)
[2016-08-18] MEDS: LEVETIRACETAM 500 MG TABLET PO SCH ×2 (08:00→20:18)
[2016-08-18 09:56] LABS: BASOPHILS % (AUTO) 0.4 % (0-2); EOSINOPHILS # (AUTO) 0.1 T/MM3 (0-0.5); EOSINOPHILS % (AUTO) 1.5 % (0-4); HCT - HEMATOCRIT 43.1 % (41-53); HGB - HEMOGLOBIN 14.8 GM/DL (13.5-17.5); IMMATURE GRANULOCYTE # (AUTO) 0.02 T/MM3 (0.00-0.03); IMMATURE GRANULOCYTE % (AUTO) 0.4 % (0.0-0.5); LYMPHOCYTES # (AUTO) 1.2 T/MM3 (1-4.8); LYMPHOCYTES % (AUTO) 23.4 % (23-45); MEAN CORPUSCULAR HGB 32.5 UUG (26-34); MEAN CORPUSCULAR HGB CONC(MCHC 34.3 GM/DL (31-37); MEAN CORPUSCULAR VOLUME 94.7 UM3 (80-100); MEAN PLATELET VOLUME 10.1 UM3 (9.4-12.4); MONOCYTES # (AUTO) 0.4 T/MM3 (0-0.8); MONOCYTES % (AUTO) 6.6 % (0-9.0); NEUTROPHILS #(AUTO)-ABSOLUTE 3.6 T/MM3 (1.8-7.7); NEUTROPHILS % (AUTO) 67.7 % (33-66); RED BLOOD COUNT 4.55 M/MM3 (4.50-5.90); WBC - WHITE BLOOD COUNT 5.3 T/MM3 (4.5-11.0)
[2016-08-18 10:02] LABS: ANION GAP 11 MEQ/L (5-15); BUN/CREATININE RATIO 28 RATIO (6-26); CALCIUM 9.2 MG/DL (8.4-10.2); CHLORIDE 102 MEQ/L (98-107); CO2 - CARBON DIOXIDE 31 MEQ/L (22-30); CREATININE 0.8 MG/DL (0.8-1.5); GLOMERULAR FILTRATION RATE 92; GLUCOSE 120 MG/DL (75-110); POTASSIUM 4.2 MEQ/L (3.6-5); SODIUM 144 MEQ/L (134-144)
[2016-08-18] MEDS: ERTAPENEM 1 G in NORMAL SALINE 100 ML IV SCH (11:33)
--- NOTE | 2016-08-18 12:16 | PNPDOC ---
Subjective Date DATE: 08/18/16 TIME: 12:08 Subjective Patient states pain and leg has improved. He continues to have warmth and is concerned about the redness not having pulled away more from the line which was drawn initially on admission. He is able to bear weight without difficulty, does feel like the knee is somewhat swollen. 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 Objective Vital Signs Vital signs Vital Signs Date Time Temp Pulse Resp B/P Pulse Ox O2 Delivery O2 Flow Rate FiO2 08/18/16 07:32 97.5 58 20 146/91 96 Room Air Telemetry Rhythm: Sinus Rhythm Height (Feet): 5 Height (Inches): 10.00 Weight (Kilograms): 80.200 General General Appearance: Alert, Orientated x 3 Respiratory (Brief) Respiratory: FOUND: clear all leonard, equal bilaterally, NOT FOUND: rales, wheezes Cardiovascular (Brief) Cardiac: FOUND: pedal edema, regular rate, regular rhythm Extremities (Brief) Extremity : Comments Right leg cellulitis with marked edges with indelible ink. Cellulitis is withdrawn somewhat from the edges and shows improvement. No abscess, induration noted. Laboratory Laboratory Laboratory Tests 08/17/16 04:13 08/18/16 09:45 Laboratory Tests 08/17/16 04:13 08/18/16 09:45 Microbiology Microbiology Microbiology Date/Time Source Procedure Growth Status 08/16/16 11:31 Peripheral/Iv Start Blood Culture - Preliminary NO GROWTH AFTER 48 HOURS Resulted 08/16/16 11:28 Peripheral/Iv Start Blood Culture - Preliminary NO GROWTH AFTER 48 HOURS Resulted Assessment & Plan Problems: (1) Cellulitis Assessment & Plan: Continue the Invanz IV. Consider at least 1 more day of IV antibiotics. White count is improving, cultures are negative at this time. However I do have concerns because of the artificial knee joint and the overlying cellulitis. Patient to be given a Boaz pad to be used when necessary Recheck CBC CMP CRP in the morning. (2) Hypertension Assessment & Plan: Vitals stable (3) Seizure disorder Assessment & Plan: Continue with Keppra, patient has had no episodes. Code Status Full Code Hospital Course Summary Disclaimer The hospital course summary below is not to be considered part of the above Progress Note. Hospital Course Summary #1 right lower extremity cellulitis--blood cultures have been sent. We will treat the patient with Invanz during his hospital physician. 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 Appears to have slight improvement compared to yesterday. Continue current therapy. #2 hypertension--continue beta martina. #3 seizure disorder--continue Keppra. #4 dyslipidemia--we will hold his fish oil during his hospitalization. 08/18/2016 Improvement noted on boundaries of cellulitis. Continue Invanz IV at least 1 more day due to artificial knee joint underlying cellulitis. Added a Boaz pack for when necessary use Cultures are negative, white count improving. Recheck labs in the morning. MELY BARNES MD August 18, 2016 12:12
[2016-08-18 16:25] VITALS: BP 151/87; PULSE 62; RESP 18; TEMP 97.5; O2SAT 96
--- NOTE | 2016-08-18 17:18 | NUR ---
STATUS PT IS A&OX3. PT AMBULATED IN THE HALLS A COUPLE TIMES TODAY. SAT OUT IN THE SUN AREA FOR A WHILE. PT DENIES PAIN. CELLULITIS EDGES ARE MARKED. NO INCREASING CELLULITIS NOTED. PT CALLS FOR NEEDS.
[2016-08-19] VITALS: BP 124/71; PULSE 54; RESP 14; TEMP 98; O2SAT 98
[2016-08-19 05:41] LABS: BASOPHILS % (AUTO) 0.6 % (0-2); EOSINOPHILS # (AUTO) 0.1 T/MM3 (0-0.5); EOSINOPHILS % (AUTO) 2.2 % (0-4); HCT - HEMATOCRIT 41.3 % (41-53); IMMATURE GRANULOCYTE # (AUTO) 0.01 T/MM3 (0.00-0.03); IMMATURE GRANULOCYTE % (AUTO) 0.2 % (0.0-0.5); LYMPHOCYTES # (AUTO) 1.6 T/MM3 (1-4.8); LYMPHOCYTES % (AUTO) 33.5 % (23-45); MEAN CORPUSCULAR HGB 32.1 UUG (26-34); MEAN CORPUSCULAR HGB CONC(MCHC 33.9 GM/DL (31-37); MEAN CORPUSCULAR VOLUME 94.7 UM3 (80-100); MONOCYTES # (AUTO) 0.4 T/MM3 (0-0.8); MONOCYTES % (AUTO) 8.6 % (0-9.0); NEUTROPHILS #(AUTO)-ABSOLUTE 2.7 T/MM3 (1.8-7.7); NEUTROPHILS % (AUTO) 54.9 % (33-66); RED BLOOD COUNT 4.36 M/MM3 (4.50-5.90); WBC - WHITE BLOOD COUNT 4.9 T/MM3 (4.5-11.0)
[2016-08-19 05:53] LABS: ALBUMIN 3.5 G/DL (3.5-5.0); ALBUMIN/GLOBULIN RATIO 1.5 RATIO (1.1-2.2); ALKALINE PHOSPHATASE 48 U/L (38-126); ALT (SGPT) 48 U/L (21-72); ANION GAP 11 MEQ/L (5-15); AST (SGOT) 29 U/L (17-59); BUN/CREATININE RATIO 22 RATIO (6-26); C-REACTIVE PROTEIN 41.3 MG/L (0-9); CALCIUM 8.8 MG/DL (8.4-10.2); CHLORIDE 103 MEQ/L (98-107); CO2 - CARBON DIOXIDE 29 MEQ/L (22-30); CREATININE 0.9 MG/DL (0.8-1.5); GLOMERULAR FILTRATION RATE 80; GLUCOSE 97 MG/DL (75-110); POTASSIUM 4.4 MEQ/L (3.6-5); SODIUM 143 MEQ/L (134-144); TOTAL PROTEIN 5.9 G/DL (6.3-8.2)
--- NOTE | 2016-08-19 06:15 | NUR ---
SUMMARY PT IS SLEEPING AT THE MOMENT. ALERT AND ORIENTED. DENIED ANY PAIN THIS SHIFT. PT IS UP AD MARTHA. CELLULITIS ON HIS RIGHT FOOT IMPROVING. 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
[2016-08-19 07:12] VITALS: BP 150/85; PULSE 58; RESP 16; TEMP 97.8; O2SAT 96
[2016-08-19] MEDS: CARVEDILOL 3.125 MG TABLET PO SCH ×2 (08:23→16:42)
[2016-08-19] MEDS: LEVETIRACETAM 500 MG TABLET PO SCH ×2 (08:23→20:07)
[2016-08-19] MEDS ORDERED: NORMAL SALINE 500 ML IV PRN (10:45)
[2016-08-19] MEDS: ERTAPENEM 1 G in NORMAL SALINE 100 ML IV SCH (10:46)
[2016-08-19] MEDS ORDERED: PRN ORDERS MC (12:15)
[2016-08-19] MEDS ORDERED: NITROGLYCERIN 0.4 MG SUBLINGUAL TABLET SL PRN (12:15)
[2016-08-19] MEDS ORDERED: HYDROCODONE/APAP 5 mg/325 mg TABLET PO PRN (12:15)
[2016-08-19] MEDS ORDERED: CLINDAMYCIN 600mg IVPB 50 ML IV SCH (12:15)
[2016-08-19] MEDS ORDERED: BISACODYL 10 MG SUPPOSITORY RECTALLY PRN (12:15)
[2016-08-19] MEDS ORDERED: MAG-AL + SIM LIQUID 30 ML UDC PO PRN (12:15)
[2016-08-19] MEDS ORDERED: MILK OF MAGNESIA 30 ML SUSP PO PRN (12:15)
--- NOTE | 2016-08-19 12:27 | PNPDOC ---
ADAMAANTONY Oziel MEDICAL EQUIPMENT REPAIR TECHNICIAN 08/19/16 1221: Subjective Date DATE: 08/19/16 TIME: 12:18 Subjective Gavin is seen today in follow up. His leg remains red/deep purple, swollen, painful. He reports only moderate improvement in symptoms. Some intermittent pain. Chart reveals a prior history of cellulitis with lymphadenopathy in the past. He is otherwise doing well. Afebrile. Objective Vital Signs Vital signs Vital Signs Date Time Temp Pulse Resp B/P Pulse Ox O2 Delivery O2 Flow Rate FiO2 08/19/16 07:12 97.8 58 16 150/85 96 Room Air Telemetry Rhythm: Sinus Rhythm Height (Feet): 5 Height (Inches): 10.00 Weight (Kilograms): 80.100 General General Appearance: Alert, Orientated x 3, Cooperative, No Acute Distress Eyes (Brief) Eyes: FOUND: EOMI, PERRL, NOT FOUND: scleral icterus Neck (Brief) Neck: FOUND: midline, NOT FOUND: JVD, nuchal rigidity, spasm Respiratory (Brief) Respiratory: FOUND: clear all leonard, equal bilaterally, symmetrical, NOT FOUND : rales, wheezes Cardiovascular (Brief) Cardiac: FOUND: peripheral edema (Unilateral edema right leg. ), regular rate, regular rhythm, NOT FOUND: murmur Abdomen (Brief) Abdominal: FOUND: BS normo active x4, soft, NOT FOUND: distended, tender Extremities (Brief) Extremity : Side: Right Extremity: leg Extremity Finding: FOUND: discoloration, edema, pain, reddened, warm Comments Deep red/purple right leg. Some improvement in thigh in demarcated areas. Ongoing calf edema. Musculoskeletal (Brief) Musculoskeletal: FOUND: tenderness, NOT FOUND: spasm Integumentary (Brief) Integumentary: FOUND: dry, other (Cellulitis detailed above. ), pink, warm Laboratory Laboratory Laboratory Tests 08/18/16 09:45 08/19/16 05:23 Laboratory Tests 08/18/16 09:45 08/19/16 05:23 Microbiology Microbiology [facility]. Radiology none Sepsis Diagnostic Criteria Sepsis Confirmed/Suspected Infection: Yes SIRS Criteria: WBC >=12,000 or <=4,000, Bands >= 10%, BS >120 in non-diabetic, Plasma CRP>2 above normal Assessment & Plan Problems: (1) Cellulitis Status: Acute Qualifiers: Site of cellulitis: extremity Site of cellulitis of extremity: lower extremity Laterality: right Qualified Codes: L03.115 - Cellulitis of right lower limb (2) Hypertension Status: Chronic Qualifiers: Hypertension type: essential hypertension Qualified Codes: I10 - Essential (primary) hypertension (3) Seizure disorder Status: Chronic (4) Hx of intracranial hemorrhage Status: Chronic Assessment & Plan: 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 Plan/Intensity of Service 08/19/16- *RLE cellulitis- Discoloration looks consistent with Strep Cellulitis. BC are negative. Stop Invanz- Need to broaden Gm + coverage. Add Ceftriaxone, Clinda to cover staph/strep. Assess venous doppler due to ongoing swelling. Add LMWH for DVT px. Broaden PO pain medication. *HTN- Continue Coreg. BP is fairly well controlled. Mildly bradycardic- follow. *Sz DO, Hx of ICH/Stroke Keppra- Doing well. *Dehydration- Labs are fairly stable. Tolerating PO- Monitor. Continue supportive care. CRP still quite high. Recheck in AM. DVT Prophylaxis: Lovenox Code Status Full Code Hospital Course Summary Disclaimer The hospital course summary below is not to be considered part of the above Progress Note. Hospital Course Summary #1 right lower extremity cellulitis--blood cultures have been sent. We will treat the patient with Invanz during his hospital physician. 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 Appears to have slight improvement compared to yesterday. Continue current therapy. #2 hypertension--continue beta martina. #3 seizure disorder--continue Keppra. #4 dyslipidemia--we will hold his fish oil during his hospitalization. 08/18/2016 Improvement noted on boundaries of cellulitis. Continue Invanz IV at least 1 more day due to artificial knee joint underlying cellulitis. Added a Boaz pack for when necessary use Cultures are negative, white count improving. Recheck labs in the morning. 08/19/16- *RLE cellulitis- Discoloration looks consistent with Strep Cellulitis. BC are negative. Stop Invanz- Need to broaden Gm + coverage. Add Ceftriaxone, Clinda to cover staph/strep. Assess venous doppler due to ongoing swelling. Add LMWH for DVT px. Broaden PO pain medication. *HTN- Continue Coreg. BP is fairly well controlled. Mildly bradycardic- follow. *Sz DO, Hx of ICH/Stroke Keppra- Doing well. *Dehydration- Labs are fairly stable. Tolerating PO- Monitor. Continue supportive care. CRP still quite high. Recheck in AM. MELY BARNES MD 08/19/16 1241: Subjective Subjective 08/19/16 Pt seen and evaluated by myself independently. Agree with above plan. S- cont with pain, keeping leg elevated due to pain. O-Lungs-cta, CV - rrr, leg_ slight improvement from initial drawn edge. A/P Cellulitis leg. Agree with changing antibiotic and pain meds. Start lovenox. Reeval in am. ANTONY Ennis MD MEDICAL EQUIPMENT REPAIR TECHNICIAN August 19, 2016 12:21 MELY BARNES MD August 19, 2016 12:41
[2016-08-19] MEDS: ENOXAPARIN 40 MG/0.4 ML INJECTION SQ SCH (13:33)
[2016-08-19] MEDS: CLINDAMYCIN 600mg IVPB 50 ML IV SCH ×2 (13:33→21:21)
[2016-08-19] MEDS: CEFTRIAXONE 1 G in NORMAL SALINE 100 ML IV SCH (14:33)
[2016-08-19 16:41] VITALS: BP 156/91; PULSE 61; RESP 18; TEMP 98.4; O2SAT 98
--- NOTE | 2016-08-19 17:47 | DI ---
Indication: ITS.REASON: Edema, cellulitis PROCEDURE: US VENOUS DUPLEX, LOWER EXT RT: Encounter: Initial Comparison: September 11, 2011 Technique: Color Doppler duplex and grayscale sonographic imaging of the right lower extremity was performed. Findings: There is no evidence for acute deep venous thrombosis in the right thigh. Specifically, serial graded compression was performed from the inguinal ligament to the popliteal bifurcation, on the right thigh, demonstrating appropriate compressibility of the deep venous system. In addition, color and pulsed Doppler demonstrate appropriate spontaneous flow, variation with respiration, and augmentation with calf compression. At the ankle, normal flow is identified in the posterior tibial veins; these vessels are also normal in caliber. Borderline enlarged lymph node in the right inguinal area with a fatty hilum. Impression: No evidence of acute DVT in the right lower limb. There is a preliminary report by [facility]. .
--- NOTE | 2016-08-19 17:53 | NUR ---
STATUS PT IS A&OX3. CALLS FOR NEEDS. HAS AMBULATED IN THE HALLS. NEW IV WAS PLACED DUE TO THE OTHER ONE LEAKING. PT DENIES PAIN. CELLULITIS IS NOT BRIGHT OR WARM TODAY.
[2016-08-20 00:41] VITALS: BP 159/80; PULSE 61; RESP 20; TEMP 98.1; O2SAT 98
[2016-08-20 05:39] LABS: BASOPHILS % (AUTO) 0.6 % (0-2); EOSINOPHILS # (AUTO) 0.2 T/MM3 (0-0.5); EOSINOPHILS % (AUTO) 2.9 % (0-4); HCT - HEMATOCRIT 39.1 % (41-53); HGB - HEMOGLOBIN 13.4 GM/DL (13.5-17.5); IMMATURE GRANULOCYTE # (AUTO) 0.03 T/MM3 (0.00-0.03); IMMATURE GRANULOCYTE % (AUTO) 0.6 % (0.0-0.5); LYMPHOCYTES % (AUTO) 37.7 % (23-45); MEAN CORPUSCULAR HGB 32.5 UUG (26-34); MEAN CORPUSCULAR HGB CONC(MCHC 34.3 GM/DL (31-37); MEAN CORPUSCULAR VOLUME 94.9 UM3 (80-100); MEAN PLATELET VOLUME 9.7 UM3 (9.4-12.4); MONOCYTES # (AUTO) 0.4 T/MM3 (0-0.8); MONOCYTES % (AUTO) 7.3 % (0-9.0); NEUTROPHILS #(AUTO)-ABSOLUTE 2.7 T/MM3 (1.8-7.7); NEUTROPHILS % (AUTO) 50.9 % (33-66); RED BLOOD COUNT 4.12 M/MM3 (4.50-5.90); WBC - WHITE BLOOD COUNT 5.2 T/MM3 (4.5-11.0)
[2016-08-20] MEDS: CLINDAMYCIN 600mg IVPB 50 ML IV SCH ×2 (05:39→14:11)
[2016-08-20 05:55] LABS: ALBUMIN 3.3 G/DL (3.5-5.0); ALBUMIN/GLOBULIN RATIO 1.4 RATIO (1.1-2.2); ALKALINE PHOSPHATASE 46 U/L (38-126); ALT (SGPT) 42 U/L (21-72); ANION GAP 10 MEQ/L (5-15); AST (SGOT) 29 U/L (17-59); BUN/CREATININE RATIO 21 RATIO (6-26); CHLORIDE 103 MEQ/L (98-107); CO2 - CARBON DIOXIDE 29 MEQ/L (22-30); CREATININE 0.8 MG/DL (0.8-1.5); GLOMERULAR FILTRATION RATE 92; GLUCOSE 93 MG/DL (75-110); MAGNESIUM 2.2 MG/DL (1.6-2.3); POTASSIUM 4.3 MEQ/L (3.6-5); SODIUM 142 MEQ/L (134-144); TOTAL PROTEIN 5.6 G/DL (6.3-8.2)
--- NOTE | 2016-08-20 06:04 | NUR ---
SUMMARY. PT WATCHING TV AT THE MOMENT. ALERT AD ORIENTED. DENIED ANY PAIN THIS SHIFT. PT IS UP AD MARTHA. 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 RIGHT LEG CELLULITIS IMPROVING. CONTINUES ON IV ANTIBIOTICS WHICH HE TOLERATES WELL.
[2016-08-20 07:56] VITALS: BP 145/83; PULSE 54; RESP 20; TEMP 97.9; O2SAT 97
[2016-08-20] MEDS: CARVEDILOL 3.125 MG TABLET PO SCH (08:36)
[2016-08-20] MEDS: LEVETIRACETAM 500 MG TABLET PO SCH (08:36)
[2016-08-20] MEDS: CEFTRIAXONE 1 G in NORMAL SALINE 100 ML IV SCH (08:36)
[2016-08-20] MEDS: ENOXAPARIN 40 MG/0.4 ML INJECTION SQ SCH (08:37)
[2016-08-20 09:54] LABS: C-REACTIVE PROTEIN 24.2 MG/L (0-9)
--- NOTE | 2016-08-20 12:09 | PNPDOC ---
JERALD SILVA V SAP TECHNICAL DEVELOPER 08/20/16 1206: Subjective Date DATE: 08/20/16 TIME: 12:02 Subjective Gavin is seen today in follow up. He is doing well today and inquires about discharge. He feels that his right lower extremity swelling and erythema continues to improve. Denies feeling chest pain, shortness of breath or GI complaints. Right lower extremity swelling greater than left, and erythema improved. Appetite has been good. He is worried about losing strength during his illness. Objective Vital Signs Vital signs Vital Signs Date Time Temp Pulse Resp B/P Pulse Ox O2 Delivery O2 Flow Rate FiO2 08/20/16 07:56 97.9 54 20 145/83 97 Room Air Telemetry Rhythm: Sinus Rhythm Height (Feet): 5 Height (Inches): 10.00 Weight (Kilograms): 80.200 Extremities (Brief) Extremity : Side: Right Extremity: leg Extremity Finding: FOUND: edema (1-2+), reddened Laboratory Laboratory Laboratory Tests 08/19/16 05:23 08/20/16 04:48 Laboratory Tests 08/19/16 05:23 08/20/16 04:48 Sepsis Diagnostic Criteria Sepsis Confirmed/Suspected Infection: Yes SIRS Criteria: WBC >=12,000 or <=4,000, Bands >= 10%, BS >120 in non-diabetic, Plasma CRP>2 above normal Assessment & Plan Problems: (1) Cellulitis Status: Acute Qualifiers: Site of cellulitis: extremity Site of cellulitis of extremity: lower extremity Laterality: right Qualified Codes: L03.115 - Cellulitis of right lower limb (2) Hypertension Status: Chronic Qualifiers: Hypertension type: essential hypertension Qualified Codes: I10 - Essential (primary) hypertension (3) Seizure disorder Status: Chronic (4) Hx of intracranial hemorrhage Status: Chronic Assessment & Plan: 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 Plan/Intensity of Service 08/20/16 Overall cellulitis is improving. Changed to Rocephin and clindamycin yesterday for better staph/strep coverage. Blood cultures remain negative after 4 days. Venous Doppler of the right lower external he was negative for acute DVT. Continue Lovenox subcutaneous daily for DVT prophylaxis She chronically takes Keppra for history of seizures. Central as needed for pain control. Will consult PT and OT to evaluate patients ambulation and strength as he does reside independently with his . Code Status Full Code Hospital Course Summary Disclaimer The hospital course summary below is not to be considered part of the above Progress Note. Hospital Course Summary #1 right lower extremity cellulitis--blood cultures have been sent. We will treat the patient with Invanz during his hospital physician. 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 Appears to have slight improvement compared to yesterday. Continue current therapy. #2 hypertension--continue beta martina. #3 seizure disorder--continue Keppra. #4 dyslipidemia--we will hold his fish oil during his hospitalization. 08/18/2016 Improvement noted on boundaries of cellulitis. Continue Invanz IV at least 1 more day due to artificial knee joint underlying cellulitis. Added a [place] pack for when necessary use Cultures are negative, white count improving. Recheck labs in the morning. 08/19/16- *RLE cellulitis- Discoloration looks consistent with Strep Cellulitis. BC are negative. Stop Invanz- Need to broaden Gm + coverage. Add Ceftriaxone, Clinda to cover staph/strep. Assess venous doppler due to ongoing swelling. Add LMWH for DVT px. Broaden PO pain medication. *HTN- Continue Coreg. BP is fairly well controlled. Mildly bradycardic- follow. *Sz DO, Hx of ICH/Stroke Keppra- Doing well. *Dehydration- Labs are fairly stable. Tolerating PO- Monitor. Continue supportive care. CRP still quite high. Recheck in AM. 08/20/16 Overall cellulitis is improving. Changed to Rocephin and clindamycin yesterday for better staph/strep coverage. Blood cultures remain negative after 4 days. Venous Doppler of the right lower external he was negative for acute DVT. Continue Lovenox subcutaneous daily for DVT prophylaxis She chronically takes Keppra for history of seizures. Central as needed for pain control. Will consult PT and OT to evaluate patients ambulation and strength as he does reside independently with his . SURAJ PERES MD 08/20/16 0404: Assessment & Plan Assessment I have independently evaluated and examined this patient. I reviewed the chart, the patient's history, and the SAP TECHNICAL DEVELOPER's documented findings as above. We discussed and formulated the assessment and plan as above with additions as below: Mr. Celis is doing well with minimal residual distal right lower extremity erythema which he describes as dramatically improved from admission. He's been afebrile since admission and leukocytosis resolved day 2 of hospitalization. He reports there is minimal residual edema in his right leg at that it's significantly improved. Venous Doppler yesterday was negative for DVT and the patient is ambulating without discomfort. Examination confirms trace right lower extremity edema with minor erythema just above the right ankle and resolution of skin changes in the mid and proximal leg and distal thigh remarks indicate discoloration was previously present. Respirations are nonlabored and anterior lung leonard clear, cardiac rhythm regular. White count 5.2 today with CRP of 24.2 (down from 41.3 yesterday) Stable for discharge at this time on oral clindamycin as a single antibiotic. Patient follow-up with Dr. Deal within 1 week. Plan/Intensity of Service Discussed with nursing, venous Doppler reviewed, laboratory data reviewed. JERALD SILVA APRN August 20, 2016 12:06 SURAJ PERES MD August 20, 2016 14:34
--- NOTE | 2016-08-20 12:47 | NUR ---
status R leg is less swollowen still a little reddness noted up with standby assit pt would like to go home today.
--- NOTE | 2016-08-20 14:36 | NUR ---
CM CM IN TO VISIT PT, PT PLANS TO DC TO HOME AND DENIES NEEDS. PT AWARE TO CALL CM SHOULD NEEDS ARISE.
[2016-08-20] MEDS ORDERED: CLIN300C86 PO (14:38)
--- NOTE | 2016-08-20 14:57 | DSPDOC ---
General Date Date DATE: 08/20/16 TIME: 14:46 Attending Physician Marisa Negrete MD Admitting Physician Marisa Negrete MD Consulting Physician Admitting Diagnosis RLE cellulitis Discharge Diagnosis Right lower extremity cellulitis Laboratory Laboratory Tests Test 08/19/16 05:23 08/20/16 04:48 White Blood Count 4.9T/MM3 (4.5-11.0) 5.2T/MM3 (4.5-11.0) Red Blood Count 4.36M/MM3 (4.50-5.90) 4.12M/MM3 (4.50-5.90) Hemoglobin 14.0GM/DL (13.5-17.5) 13.4GM/DL (13.5-17.5) Hematocrit 41.3% (41-53) 39.1% (41-53) Mean Corpuscular Volume 94.7UM3 (80-100) 94.9UM3 (80-100) Mean Corpuscular Hemoglobin 32.1UUG (26-34) 32.5UUG (26-34) Mean Corpuscular Hemoglobin Concent 33.9GM/DL (31-37) 34.3GM/DL (31-37) RDW Standard Deviation 43.8FL (36.9-50.2) 42.6FL (36.9-50.2) Platelet Count 171T/MM3 (130-400) 189T/MM3 (130-400) Mean Platelet Volume 10.0UM3 (9.4-12.4) 9.7UM3 (9.4-12.4) Immature Granulocyte % (Auto) 0.2% (0.0-0.5) 0.6% (0.0-0.5) Neutrophils (%) (Auto) 54.9% (33-66) 50.9% (33-66) Lymphocytes (%) (Auto) 33.5% (23-45) 37.7% (23-45) Monocytes (%) (Auto) 8.6% (0-9.0) 7.3% (0-9.0) Eosinophils (%) (Auto) 2.2% (0-4) 2.9% (0-4) Basophils (%) (Auto) 0.6% (0-2) 0.6% (0-2) Absolute Immature Granulocyte (auto 0.01T/MM3 (0.00-0.03) 0.03T/MM3 (0.00-0.03) Absolute Neutrophils (auto) 2.7T/MM3 (1.8-7.7) 2.7T/MM3 (1.8-7.7) Absolute Lymphocytes (auto) 1.6T/MM3 (1-4.8) 2.0T/MM3 (1-4.8) Absolute Monocytes (auto) 0.4T/MM3 (0-0.8) 0.4T/MM3 (0-0.8) Absolute Eosinophils (auto) 0.1T/MM3 (0-0.5) 0.2T/MM3 (0-0.5) Absolute Basophils (auto) 0.0T/MM3 (0-0.2) 0.0T/MM3 (0-0.2) Turbidity < 20 (0-20) < 20 (0-20) Sodium Level 143MEQ/L (134-144) 142MEQ/L (134-144) Potassium Level 4.4MEQ/L (3.6-5) 4.3MEQ/L (3.6-5) Chloride Level 103MEQ/L (98-107) 103MEQ/L (98-107) Carbon Dioxide Level 29MEQ/L (22-30) 29MEQ/L (22-30) Anion Gap 11MEQ/L (5-15) 10MEQ/L (5-15) Blood Urea Nitrogen 20.0MG/DL (9-20) 17.0MG/DL (9-20) Creatinine 0.9MG/DL (0.8-1.5) 0.8MG/DL (0.8-1.5) Glomerular Filtration Rate Calc 80 92 BUN/Creatinine Ratio 22RATIO (6-26) 21RATIO (6-26) Glucose Level 97MG/DL (75-110) 93MG/DL (75-110) Calculated Osmolality 278MOSM/KG (261-280) 275MOSM/KG (261-280) Calcium Level 8.8MG/DL (8.4-10.2) 9.0MG/DL (8.4-10.2) Total Bilirubin 0.70MG/DL (0.20-1.30) 0.60MG/DL (0.20-1.30) Icterus Index < 2 (0-7) < 2 (0-7) Aspartate Amino Transf (AST/SGOT) 29U/L (17-59) 29U/L (17-59) Alanine Aminotransferase (ALT/SGPT) 48U/L (21-72) 42U/L (21-72) Alkaline Phosphatase 48U/L (38-126) 46U/L (38-126) C-Reactive Protein 41.3MG/L (0-9) 24.2MG/L (0-9) Total Protein 5.9G/DL (6.3-8.2) 5.6G/DL (6.3-8.2) Albumin 3.5G/DL (3.5-5.0) 3.3G/DL (3.5-5.0) Globulin 2.4G/DL (2.4-3.6) 2.3G/DL (2.4-3.6) Albumin/Globulin Ratio 1.5RATIO (1.1-2.2) 1.4RATIO (1.1-2.2) Chemistry Specimen Hemolysis < 15 (0-25) < 15 (0-25) Magnesium Level 2.2MG/DL (1.6-2.3) White count on admission 12.2 with 7% bands. Initial chemistries were unremarkable. Microbiology Blood cultures x 2 drawn 08/16 negative at discharge Radiology Right lower extremity venous Doppler on 08/19 was negative for DVT and demonstrated some borderline enlarged lymph nodes in the right inguinal region. History of Present Illness This is a 85-year-old male who presents with worsening right leg redness and pain for the past 2 days. Patient denies any trauma to the area. Patient states he had a fever of 101 last night. Patient states this is similar to 5 years ago when he had a cellulitis on his leg. Patient states he takes his medications as prescribed. He states he has not taken any outpatient antibiotics. She was sent in from his primary care physician for evaluation and treatment of the cellulitis. He denies any sick procedures visual irritation is. He denies any chest pain shortness of breath nausea vomiting or diaphoresis. He denies any abdominal pain diarrhea constipation melena stools or dark, tarry stools. He denies any dysuria or hematuria. Hospital Course Mr. Celis was hospitalized with extensive right lower extremity cellulitis extending from the ankle to mid thigh. He was initially treated with ertapenem due to history of polymicrobial cellulitis. Over the next 3 days he reported minimal improvement in the area of erythema although no fever was demonstrated and leukocytosis resolved. CRP was elevated at 41.3 on 08/19 at which time it was elected to switch from initial antibiotic coverage to IV Rocephin and clindamycin. Over the next 24 hours the area of erythema resolves substantially and CRP dropped to 24.2. Patient described significant reduction in edema in conjunction with improvement in erythema. He was felt stable to convert to oral antibiotics with clindamycin as a single agent but was advised that he noted increasing erythema over the next 24-48 hours there may be need to resume IV or IM ceftriaxone. Patient stable for discharge at this time with plans to follow-up with Dr. Deal within the next week for reassessment. No additional medical problems were encountered during the hospitalization. At discharge there is faint erythema just above the right ankle with trace edema. Home medications unchanged. >30 minutes spent on patient care and discharge care coordination today on the date of discharge. -- Problems: (1) Cellulitis Status: Acute Assessment & Plan: Right lower extremity (2) Hypertension Status: Chronic (3) Seizure disorder Status: Chronic (4) Hx of intracranial hemorrhage Status: Resolved Assessment & Plan: 2010- ICH and Lacunar infarct. (5) Hyperlipidemia Status: Chronic Code Status Full Code Home Meds Active Scripts Clindamycin HCl (Clindamycin HCl) 300 Mg Capsule, 1 CAP PO TID for 10 Days, #30 CAP TAKE WITH A FULL GLASS OF WATER TO AVOID ESOPHAGEAL IRRITATION. Prov:MARISA NEGRETE MD 08/20/16 Reported Medications Carvedilol (Carvedilol) 3.125 Mg Tablet, 1 TAB PO BIDWM, TAB BEST WITH FOOD. 08/16/16 Levetiracetam (Keppra) 500 Mg Tablet, 500 MG PO BID 09/10/11 Multivitamins W-Minerals (Multivitamin) 1 Cap Capsule, 1 CAP PO DAILY 08/23/09 Fish Oil/[place]-3 Fatty Acids (Fish Oil 1,000 Mg Capsule) 1 Cap Capsule, 1 CAP PO DAILY 08/23/09 Face to Face Encounter I met with patient on the day of dismissal and discussed follow up appointments , medications, and safety plan. Discharge Disposition Home Copies To 1: SHAYNA DEAL MD, ROBERTA L MD August 20, 2016 14:49
--- NOTE | 2016-08-20 15:00 | NUR ---
ivl pulled dc instructions reviewed scripts called to [facility].dc pwe wc with family
== END 2016-08-20 15:34 | disposition home or self-care (01) | DRG 603 ==
LOC: MED 09:50
PROVIDERS: ADMIT Hospitalist; ATTEND Internal Medicine
DX: L03.115 Cellulitis of right lower limb (principal); E86.0 Dehydration; I10 Essential (primary) hypertension; E78.5 Hyperlipidemia, unspecified; G40.909 Epilepsy, unspecified, not intractable, without status epilepticus
CPT/HCPCS: 36415; 80048; 80053; 83735; 85007; 85025; 85027; 86140; 87040